=== PATIENT | female | born 1950 | race Two or more races ===

== ENCOUNTER 2016-10-13 04:21 | Inpatient (IN) | payer MEDICARE ==
[~2016-10-13] VITALS: Ht 165.1 cm; Wt 62.6 kg
[2016-10-13 04:30] VITALS: BP 129/65
--- NOTE | 2016-10-13 04:30 | NUR ---
GPS ADMISSION NOTE, RECEIVED PATIENT FROM [facility]. PATIENT ARRIVED ON THIS UNIT AT 0430 VIA STRETCHER WITH 2 EMT ESCORTS. PATIENT ADMITTED ON A 5150 HOLD FOR DTS. PER HOLD PATIENTS SON CALLED 911 TO REPORT HIS MOTHER WAS FEELING SUICIDAL. PATIENT STATED, " SHE WAS FEELING DEPRESSED AND WANTED TO OVERDOSE ON HER PAIN MEDICATION ". PATIENT IS DEPRESSED BECAUSE HER SON WAS MURDERED AND THE KILLER WENT FREE. THE 5150 WAS REVIEWED AND THE DOCUMENTATION IN THE 5150 HOLD APPEARS TO REFLECT THE PRESENTATION OF THE PATIENT. UPON FACE TO FACE ASSESSMENT PATIENT IS CURRENTLY LYING IN BED AWAKE, HAS NO S/S OR COMPLAINTS OF PAIN. PATIENT IS DISPLAYING NO S/S OF APPARENT DISTRESS. PATIENT BREATHING IS UNLABORED WITH EQUAL RISE AND FALL OF THE CHEST. PATIENT IS ALERT AND ORIENTATED X 3 ON ROOM AIR. PATIENT ASSISTED WITH TURING AND REPOSITIONING Q2HR AND PRN FOR COMFORT AND CIRCULATION. PATIENT HAS NO NEEDS AT THIS TIME. PATIENT IS NOTED TO BEING ANXIOUS, DISHEVELED, DISORGANIZED, COOPERATIVE, HYPERVERBAL AND NEEDS REDIRECTION. PATIENT DENIES SUICIDE IDEATIONS OR HOMICIDAL IDEATIONS AT THIS TIME. PATIENT IS UNDER THE PSYCHIATRIC CARE OF DR. JHAVERI AND THE MEDICAL CARE OF DR BRANNON. PATIENT BELONGINGS WERE INVENTORIED AND CHECKED FOR CONTRABAND. ALL CONTRABAND REMOVED AND STORED IN PATIENT HALLWAY LOCKER. PATIENT ADVANCED DIRECTIVES PREFERENCE, IMMUNIZATIONS QUESTIONER, NECESSARY PAPERWORK, AND SKIN ASSESSMENT COMPLETED. PATIENT ORIENTATED TO ROOM, FLOOR, AND STAFF WITH ALL QUESTIONS ANSWERED. PATIENT EDUCATED ON THE USE OF THE CALL WOLFE. PATIENT BED SIDE RAILS ARE UP X 2 FOR SAFETY. PATIENT BED IS LOCKED, LOW AND I WILL CONTINUE TO MONITOR THIS PATIENT Q 15 MIN WITH THE HELP OF STAFF TO MAINTAIN SAFETY.
[2016-10-13] MEDS ORDERED: MAG HYDROX/AL HYDROX/SIMETH 30 ML UDC PO PRN (05:30)
[2016-10-13] MEDS ORDERED: CELE200C PO (05:31)
[2016-10-13] MEDS ORDERED: OMEP20CA10 PO (05:32)
[2016-10-13] MEDS ORDERED: DULO60CA45 PO (05:33)
[2016-10-13] MEDS ORDERED: GABA600T2 PO (05:34)
[2016-10-13] MEDS ORDERED: CLON2TAB PO (05:35)
[2016-10-13] MEDS ORDERED: LORAZEPAM 0.5 MG TABLET ONE (05:35)
[2016-10-13] MEDS: LORAZEPAM 0.5 MG TABLET PO PRN ×2 (05:37→15:14)
--- NOTE | 2016-10-13 05:37 | NUR ---
GPS RN NOTE, PATIENT HAS A COMPLAINT OF FEELING ANXIOUS AND WOULD LIKE MEDICATION TO HELP CALM HER DOWN. PATIENT VITAL SIGNS ARE STABLE. GAVE ATIVAN 0.5 MG PO Q4HR PRN ORDERED. WILL REASSESS FOR ANXIETY AND I WILL CONTINUE TO MONITOR THIS PATIENT.
[2016-10-13] MEDS ORDERED: CHOL100040 PO (05:45)
[2016-10-13] MEDS ORDERED: HYDR8TAB2 PO (05:46)
[2016-10-13] MEDS ORDERED: FENT1PAT5 TD (05:48)
[2016-10-13] MEDS ORDERED: NITR50CA PO (05:50)
[2016-10-13] MEDS ORDERED: SUMA100T16 PO (05:53)
[2016-10-13 07:36] LABS: ALBUMIN 3.6 g/dL (3.4-5.0); BILIRUBIN,TOTAL 0.2 mg/dL (0.2-1.0); TOTAL PROTEIN, SERUM 7.3 g/dL (6.4-8.2)
[2016-10-13] MEDS: ACETAMINOPHEN 325 MG TABLET PO PRN ×2 (11:31→18:48)
[2016-10-13] MEDS: HYDROMORPHONE HCL 2 MG TABLET PO PRN ×2 (11:31→15:14)
[2016-10-13] MEDS ORDERED: SUMATRIPTAN SUCCINATE 100 MG TABLET PO ONE (12:00)
--- NOTE | 2016-10-13 12:36 | NUR ---
Initial Discharge Plan: Patient lives at home with her [address] [place] [address]. ([phone]). Patient wants to return home upon discharge. housekeeping worker spoke to Patient's Rohan Zhang ([phone]) who confirmed that patient can return home upon discharge. housekeeping worker will help form a safe and proper discharge.
[2016-10-13] MEDS ORDERED: risperiDONE-M 0.5 MG TAB.RAPDIS PO PRN (15:30)
[2016-10-13 16:00] VITALS: BP 111/60
[2016-10-13] MEDS: DULOXETINE HCL 30 MG CAPSULE.DR PO SCH (16:51)
[2016-10-13] MEDS ORDERED: SUMATRIPTAN SUCCINATE 100 MG TABLET PO PRN (17:30)
[2016-10-13] MEDS ORDERED: HYDROMORPHONE HCL 2 MG TABLET PO PRN (18:00)
[2016-10-13 20:00] VITALS: BP 117/57
[2016-10-13] MEDS: MIRTAZAPINE 15 MG TABLET PO SCH (21:13)
[2016-10-13] MEDS: TEMAZEPAM 7.5 MG CAPSULE PO PRN (21:14)
[2016-10-14] MEDS: HYDROMORPHONE HCL 2 MG TABLET PO PRN ×3 (01:27→17:31)
[2016-10-14 08:00] VITALS: BP 127/63
[2016-10-14] MEDS: DULOXETINE HCL 30 MG CAPSULE.DR PO SCH (08:36)
[2016-10-14] MEDS: PANTOPRAZOLE 40 MG TABLET.DR PO SCH (08:37)
[2016-10-14] MEDS: NITROFURANTOIN MACROCRYSTAL 50 MG CAPSULE PO SCH (08:37)
[2016-10-14] MEDS: GABAPENTIN 300 MG CAPSULE PO SCH ×2 (08:37→17:31)
[2016-10-14] MEDS ORDERED: CHOLECALCIFEROL 1,000 UNIT TABLET (VIT D3) PO SCH (09:00)
[2016-10-14] MEDS: MAGNESIUM HYDROXIDE 30 ML UDC PO PRN (09:41)
--- NOTE | 2016-10-14 09:43 | NUR ---
GPS RN NOTE: PATIENT COMPLAINING PF LOWER BACK PAIN DILAUDID 4 MG PO PRN Q 4 HR GIVEN PER ORDER WILL CONTINUE MONITORING
[2016-10-14] MEDS: CHOLECALCIFEROL 1,000 UNIT TABLET (VIT D3) PO SCH (12:31)
--- NOTE | 2016-10-14 13:19 | NUR ---
GPS RN NOTE: DR JOSHI WAS SEEN AND EXAMINE PT PT COMPLAINING OF PAIN NEW ORDER MS CONTIN 30 MG PO BID AND TO DC DILAUDID 8 MG PRN ORDER PLACED AND CARED OUT
[2016-10-14] MEDS ORDERED: MORPHINE SULFATE SR 15 MG TABLET.SA PO SCH (13:30)
[2016-10-14] MEDS: MORPHINE SULFATE SR 15 MG TABLET.SA PO SCH ×2 (14:01→21:39)
[2016-10-14 16:00] VITALS: BP 142/60
--- NOTE | 2016-10-14 17:31 | NUR ---
GPS RN NOTE: PATIENT COMPLAINING PF LOWER BACK PAIN DILAUDID 4 MG PO PRN Q 4 HR GIVEN PER ORDER WILL CONTINUE MONITORING
[2016-10-14] MEDS ORDERED: risperiDONE-M 0.5 MG TAB.RAPDIS PO PRN (20:00)
[2016-10-14 20:09] VITALS: BP 150/69
[2016-10-14] MEDS: LORAZEPAM 0.5 MG TABLET PO PRN (20:31)
[2016-10-14] MEDS: MIRTAZAPINE 15 MG TABLET PO SCH (21:39)
[2016-10-15] MEDS: HYDROMORPHONE HCL 2 MG TABLET PO PRN ×3 (04:43→16:39)
[2016-10-15 08:00] VITALS: BP 133/70
[2016-10-15] MEDS: DULOXETINE HCL 30 MG CAPSULE.DR PO SCH (08:14)
[2016-10-15] MEDS: CHOLECALCIFEROL 1,000 UNIT TABLET (VIT D3) PO SCH (08:14)
[2016-10-15] MEDS: PANTOPRAZOLE 40 MG TABLET.DR PO SCH (08:14)
[2016-10-15] MEDS: GABAPENTIN 300 MG CAPSULE PO SCH ×2 (08:15→17:14)
[2016-10-15] MEDS: NITROFURANTOIN MACROCRYSTAL 50 MG CAPSULE PO SCH (08:15)
[2016-10-15] MEDS: MORPHINE SULFATE SR 15 MG TABLET.SA PO SCH ×2 (08:16→22:00)
[2016-10-15] MEDS ORDERED: FENTANYL TD PATCH (50 MCG/HR) 50 MCG/HR PATCH.TD72 TD SCH (09:00)
[2016-10-15] MEDS ORDERED: FENTANYL TD PATCH (75MCG/HR) 75 MCG/HR PATCH.TD72 TD SCH (12:00)
[2016-10-15] MEDS: MAGNESIUM HYDROXIDE 30 ML UDC PO PRN (12:23)
--- NOTE | 2016-10-15 12:28 | NUR ---
GPS RN NOTE: PATIENT COMPLAINING OF LEFT ABDOMINAL PAIN DILAUDID 4 MG PO Q 4 HR GIVE PER ORDER WILL CONTINUE MONITORING FOR SAFETY AD BEHAVIORS Q 15 MIN
--- NOTE | 2016-10-15 13:20 | NUR ---
neon sign worker spoke to Patient's Rohan Zhang ([phone]) to inform him of patient's discharge tomorrow 10/16/16. Patient's was agreeable with the discharge plan and agreed to filler picker the patient at 12:00Pm.
[2016-10-15] MEDS: LORAZEPAM 0.5 MG TABLET PO PRN (15:35)
[2016-10-15 16:00] VITALS: BP 127/73
[2016-10-15] MEDS ORDERED: BENZTROPINE MESYLATE (1 MG) 1 MG TABLET PO SCH (18:00)
[2016-10-15 20:00] VITALS: BP 145/57
[2016-10-15] MEDS: MIRTAZAPINE 15 MG TABLET PO SCH (22:01)
[2016-10-15] MEDS: TEMAZEPAM 7.5 MG CAPSULE PO PRN (22:01)
[2016-10-16] MEDS: HYDROMORPHONE HCL 2 MG TABLET PO PRN ×2 (02:00→06:45)
[2016-10-16] MEDS: LORAZEPAM 0.5 MG TABLET PO PRN (05:28)
[2016-10-16 07:14] LABS: BASOPHILS % (AUTO) 0.2 % (0.0-2.0); EOSINOPHILS # (AUTO) 0.1 /CMM (0.0-0.7); EOSINOPHILS % (AUTO) 2.2 % (0.0-6.0); HEMATOCRIT 41 % (33-45); HEMOGLOBIN 13.6 g/dL (11.5-14.8); LYMPHOCYTES # (AUTO) 2.4 /CMM (0.8-4.8); LYMPHOCYTES % (AUTO) 43.4 % (20.0-44.0); MEAN CORPUSCULAR HEMOGLOBIN 29 PG (26.0-33.0); MEAN CORPUSCULAR HGB CONC 34 g/dl (31.0-36.0); MEAN CORPUSCULAR VOLUME 87 fL (82-100); MONOCYTES # (AUTO) 0.4 /CMM (0.1-1.30); MONOCYTES % (AUTO) 7.7 % (2.0-12.0); NEUTROPHILS # (AUTO) 2.6 /CMM (1.8-8.9); NEUTROPHILS % (AUTO) 46.5 % (43.0-81.0); PLATELET COUNT (AUTO) 263 /CMM (150-450); RDW COEFFICIENT OF VARIATION 14.6 (11.5-15.0); RED BLOOD CELL COUNT(AUTO) 4.64 MIL/uL (4.0-5.2); WHITE BLOOD COUNT (AUTO) 5.6 K/uL (4.3-11.0)
[2016-10-16 07:53] LABS: ALBUMIN 3.9 g/dL (3.4-5.0); BILIRUBIN,TOTAL 0.5 mg/dL (0.2-1.0); CALCIUM, SERUM 9.2 mg/dL (8.5-10.1); CREATININE 0.8 mg/dL (0.6-1.3); POTASSIUM 4.2 mmol/L (3.5-5.1); TOTAL PROTEIN, SERUM 7.6 g/dL (6.4-8.2)
[2016-10-16 08:00] VITALS: BP 104/90
[2016-10-16] MEDS: DULOXETINE HCL 30 MG CAPSULE.DR PO SCH (08:25)
[2016-10-16] MEDS: GABAPENTIN 300 MG CAPSULE PO SCH (08:25)
[2016-10-16] MEDS: CHOLECALCIFEROL 1,000 UNIT TABLET (VIT D3) PO SCH (08:25)
[2016-10-16] MEDS: PANTOPRAZOLE 40 MG TABLET.DR PO SCH (08:25)
[2016-10-16] MEDS: NITROFURANTOIN MACROCRYSTAL 50 MG CAPSULE PO SCH (08:25)
[2016-10-16] MEDS: MORPHINE SULFATE SR 15 MG TABLET.SA PO SCH (08:25)
--- NOTE | 2016-10-16 09:52 | NUR ---
DR. JHAVERI GAVE AN ORDER TO D/C HOLD AND D/C HOME TODAY. PT. WITHOUT DISTRESS, DENIES SUICIDAL AND HOMICIDAL AND TO FOLLOW UP WITH PSYCH AND MEDICAL DOCTORS.
--- NOTE | 2016-10-16 11:31 | NUR ---
Discharge Note: Patient was discharged home with her [address] [place] [address]. ([phone]). Patient's Rohan Zhang ([phone]) was notified and picked her up via private vehicle. Patient and patient's were both agreeable with discharge plan. Patient's mood and affect were appropriate upon discharge. Patient denied suicidal and homicidal ideations. An intake appointment was scheduled for 9:00am Wednesday10/19/[address] ([phone]) for substance abuse follow-up. Patient was referred to [facility] [id number], [facility] [address] ([phone]). Facilitated info to IDT team who are in agreement with discharge arrangement. The multidisciplinary exitcare form was done, printed, signed, and given to the patient.
--- NOTE | 2016-10-16 12:00 | NUR ---
GPS/RN PT D/C HOME WITH A RIDE. DENIES SUICIDAL AND HOMICIDAL AT THE TIME OF DISCHARGE. NO ACUTE DISTRESS NOTED NO PAIN REPORTED.PRESCRIPTION, EXIT CARE INSTRUCTIONS GIVEN AND UNDERSTOOD. BELONGINGS, MEDICATIONS RETURNED, WRIST BAND REMOVED. PT ACCOMPANIED TO THE LOBBY
== END 2016-10-16 12:00 | disposition home or self-care (01) | DRG 885 ==
LOC: GPS 04:21
PROVIDERS: ADMIT Psychiatry & Neurology Psychosomatic Medicine; ATTEND Psychiatry & Neurology Psychosomatic Medicine
DX: F32.3 Major depressive disorder, single episode, severe with psychotic features (principal); K85.90 Acute pancreatitis without necrosis or infection, unspecified; J44.9 Chronic obstructive pulmonary disease, unspecified; G89.29 Other chronic pain; M79.7 Fibromyalgia; Z91.5 Personal history of self-harm; F29 Unspecified psychosis not due to a substance or known physiological condition; Z73.6 Limitation of activities due to disability; G43.909 Migraine, unspecified, not intractable, without status migrainosus; M54.5 Low back pain
CPT/HCPCS: 36415; 80053-TC; 80061-TC; 82150-TC; 85025-TC